=== PATIENT | female | born 1930 | race Caucasian/White ===

== ENCOUNTER 2016-10-26 12:02 | Emergency (ER) | payer OTHER ==
[~2016-10-26] VITALS: Ht 154.9 cm; Wt 62.1 kg
--- NOTE | 2016-10-26 12:31 | ED MVC/FALL/TRAUMA COMPLAINT ---
History of Present Illness General Chief Complaint: Fall Stated Complaint: S/P FALL LEFT ARM Source: patient, family Exam Limitations: no limitations Vital Signs & Intake/Output Vital Signs & Intake/Output Vital Signs Date Time Temp Pulse Resp B/P Pulse O2 O2 Flow FiO2 Ox Delivery Rate 10/26 1355 97.3 78 18 152/76 97 Room Air ED Intake and Output 10/27 0000 10/26 1200 Intake Total 0 Output Total Balance 0 Intake, Oral 0 Patient 137 lb Weight Allergies Coded Allergies: No Known Allergies (10/26/16) Reconcile Medications Beta-Carotene(A) W-C & E/Min (Vision Vitamins) 1 EACH TABLET 1 TAB PO DAILY SUPPLEMENT (Reported) Celecoxib (Celebrex) 100 MG CAPSULE 1 CAP PO BID PAIN (Reported) Cholecalciferol (Vitamin D3) (Vitamin D) 1,000 UNIT TABLET 1 TAB PO DAILY SUPPLEMENT (Reported) Multivitamin (Daily Multiple Vitamin) 1 EACH TABLET 1 TAB PO DAILY SUPPLEMENT (Reported) [place]-3 Fatty Acids/Fish Oil (Fish Oil 1,000 MG Capsule) 340 MG-1,000 MG CAPSULE 1 CAP PO DAILY SUPPLEMENT (Reported) Simvastatin (Simvastatin*) 20 MG TABLET 1 TAB PO QPM CHOLESTEROL (Reported) Tramadol HCl 50 MG TABLET 1 TAB PO BIDP PRN PAIN (Reported) Triage Note: PT TO ED C/O LEFT ARM PAIN S/P FALLING ON ICE LAST NIGHT. DENIES HEAD STRIKE. PT HAS SLING IN PLACE S[employer]IOR [employer]. +CMS, +PULSES. PT UNABLE TO RAISE ARM UP. REFUSING MEDS IN TRIAGE. PAIN IS UPPER ARM. Triage Nurses Notes Reviewed? yes HPI: patient is an 85-year-old female presents complaining of right shoulder pain status post fall. Patient reports she slipped and fell on ice yesterday evening while shoveling snow. Patient struck her right shoulder against the ground. Pain is mild to moderate at rest, severe with range of motion. Patient able to passively range her right shoulder, unable to actively move her right shoulder prior to arrival. Patient took a dose of tramadol yesterday evening with moderate improvement. Patient is right-hand dominant. Patient denies head impact, headache, loss of consciousness, neck pain, back pain, numbness. (DANAE DAVID,ALLY) Past History Travel History Traveled to [place] past 21 day No Medical History Any Pertinent Medical History? see below for history Musculoskeletal: ARTHRITIS Surgical History Surgical History: non-contributory Psychosocial History What is your primary language Hungarian Tobacco Use: Quit >30 days ago ETOH Use: denies use Illicit Drug Use: denies illicit drug use Family History Hx Contributory? No (ALLY JONES) Review of Systems Review of Systems Constitutional: Denies: chills, fever. Eyes: Denies: blurred vision. Cardiovascular: Denies: chest pain. Gastrointestinal/Abdominal: Denies: abdominal pain. Musculoskeletal: Reports: see HPI. Denies: back pain, neck pain. Neurological/Psychological: Denies: headache, numbness, paresthesia. (ALLY JONES) Physical Exam Physical Exam General Appearance: well developed/nourished, alert, awake Head: atraumatic, normal appearance, nontender Eyes: Bilateral: normal appearance, PERRL, EOMI. Ears, Nose, Throat, Mouth: hearing grossly normal, moist mucous membrane Neck: normal inspection, supple, no midline tenderness, no paraspinal tenderness Respiratory: chest non-tender, no respiratory distress Peripheral Pulses: 2+ radial (R) (ulnar pulse 2+) Back: normal inspection, normal range of motion, no vertebral tenderness, no paraspinal tenderness Extremities: tenderness right anterior shoulder. Normal passive range of motion , pain significantly increases with abduction and flexion. Patient unable to actively flex or abduct her right shoulder. No tenderness to the right humerus, right elbow, right forearm, right wrist, right hand. Sensation and capillary refill normal to the distal right upper extremity. Right hand strength 2+. Neurologic/Psych: awake, alert, oriented x 3, normal gait, normal mood/affect Skin: intact, normal color, warm/dry Core Measures ACS in differential dx? No Severe Sepsis Present: No Septic Shock Present: No (ALLY JONES) Progress Differential Diagnosis: C/T/L spine injury, ext injury, spinal cord injury, sprain, strain, fracture, dislocation, AC separation, rotator cuff injury Diagnostic Imaging: Viewed by Me: Radiology Read. Discussed w/RAD: Radiology Read. Radiology Impression: PATIENT: [place] PRESENT AGE: 85 PATIENT ACCOUNT NO: [id number] : 31 LOCATION: [facility] ORDERING PHYSICIAN: ALLY DAVID SERVICE DATE: 10/26/16 EXAM TYPE: RAD - XRY-SHOULDER COMPLETE-RIGHT EXAMINATION: XR SHOULDER, RIGHT CLINICAL INFORMATION : Right shoulder pain following fall. COMPARISON: Chest radiographs 06/04/2016 TECHNIQUE: Right shoulder is imaged in 3 views. FINDINGS: There is no visible fracture dislocation. The acromioclavicular alignment is normal. There is mineralization at the superior aspect of the acromioclavicular joint capsule. No erosive change. There is also some fine mineralization on the external rotation view adjacent to the superior glenoid rim likely at origin long head biceps. Small cystic changes are present within the greater tuberosity which may be associated with chronic rotator cuff degeneration. Glenohumeral joint shows no narrowing or erosive changes. IMPRESSION: 1. No fracture or dislocation. 2. 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 Mineralization also at superior acromioclavicular joint capsule. DICTATED BY: DAVID MARCANO MD DATE/TIME DICTATED:10/26/161350 UROLOGY NURSE:JOSE LUIS DATE/TIME TRANSCRIBED:10/26/161350 CONFIDENTIAL, DO NOT COPY WITHOUT APPROPRIATE AUTHORIZATION. <Electronically signed in Other Vendor System> SIGNED BY: DAVID MARCANO MD 10/26/16 1358 (ALLY JONES) Plan of Care: Orders Procedure Date/time Status XRY-SHOULDER COMPLETE-RIGHT 10/26 1237 Active Patient declined pain medication on initial exam. 1320: Patient resting comfortably. Discussed wet read x-ray results with patient and her daughter. Awaiting radiologist reading. Discussed with Dr. Means 1350: Patient requesting discharge, aware that radiologist has not read her x- ray yet. Patient has her own sling. Will provide patient with information for orthopedic follow up. (ALLY JONES) Departure Departure Disposition: HOME OR SELF CARE Condition: Stable Clinical Impression Primary Impression: Rotator cuff injury Qualifiers: Encounter type: initial encounter Laterality: right Qualified Code: S46.001A - Unspecified injury of muscle(s) and tendon(s) of the rotator cuff of right shoulder, initial encounter Secondary Impressions: Right shoulder strain Qualifiers: Encounter type: initial encounter Qualified Code: S46.911A - Strain of unspecified muscle, fascia and tendon at shoulder and upper arm level, right arm, initial encounter Referrals: FRANKLYN AVILA,KALYAN MAI MD,SHABNAM Priest (PCP/Family) Additional Instructions: Wear the sling for support. Follow up with Dr. Negro(orthopedist) this week for further evaluation, call in the morning for appointment. Return to the ER if numbness or worsening of symptoms. Departure Forms: Customer Survey General Discharge Information (DANAE DAVID,ALLY) PA/LATHER APPRENTICE Co-Sign Statement Statement: ED Attending supervision documentation- [X] I saw and evaluated the patient. I have also reviewed all the pertinent lab results and diagnostic results. I agree with the findings and the plan of care as documented in the PA's/LATHER APPRENTICE's documentation. [X] I have reviewed the ED Record and agree with the PA's/LATHER APPRENTICE's documentation. [] Additions or exceptions (if any) to the PAs/LATHER APPRENTICE's note and plan are summarized below: [] (APRIL AVILA,BRENDA)
[2016-10-26] MEDS ORDERED: CELEBREX100 M1 PO (12:55)
[2016-10-26] MEDS ORDERED: SIMVASTATIN20 M2 PO (12:55)
[2016-10-26] MEDS ORDERED: VISION VITAMIN1 EACH PO (12:56)
[2016-10-26] MEDS ORDERED: DAILY MULTIPLE1 EACH PO (12:56)
[2016-10-26] MEDS ORDERED: VITAMIN D1000 UNIT PO (12:57)
[2016-10-26] MEDS ORDERED: TRAMADOL HCL50 M1 PO (12:58)
[2016-10-26] MEDS ORDERED: FISH OIL 1,0001 EACH PO (12:58)
[2016-10-26 13:55] VITALS: BP 152/76
--- NOTE | 2016-10-26 13:58 | RADIOLOGY REPORT ---
EXAMINATION: XR SHOULDER, RIGHT CLINICAL INFORMATION: Right shoulder pain following fall. COMPARISON: Chest radiographs 06/04/2016 TECHNIQUE: Right shoulder is imaged in 3 views. FINDINGS: There is no visible fracture dislocation. The acromioclavicular alignment is normal. There is mineralization at the superior aspect of the acromioclavicular joint capsule. No erosive change. There is also some fine mineralization on the external rotation view adjacent to the superior glenoid rim likely at origin long head biceps. Small cystic changes are present within the greater tuberosity which may be associated with chronic rotator cuff degeneration. Glenohumeral joint shows no narrowing or erosive changes. IMPRESSION: 1. No fracture or dislocation. 2. 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 Mineralization also at superior acromioclavicular joint capsule.
== END 2016-10-26 13:58 ==
LOC: ERH 12:02
DX: S46.001A Unspecified injury of muscle(s) and tendon(s) of the rotator cuff of right shoulder, initial encounter (principal); S46.911A Strain of unspecified muscle, fascia and tendon at shoulder and upper arm level, right arm, initial encounter; W00.0XXA Fall on same level due to ice and snow, initial encounter
CPT/HCPCS: 73030-RT